=== PATIENT | female | born 1985 | race Caucasian/White ===

== ENCOUNTER 2018-05-03 08:45 | Outpatient (CLI) | payer BC | END 2018-05-03 20:29 | disposition home or self-care (01) | LOC: SMI 08:45 | PROVIDERS: ATTEND Orthopaedic Surgery | DX: S93.621A Sprain of tarsometatarsal ligament of right foot, initial encounter (principal); X58.XXXA Exposure to other specified factors, initial encounter; Y93.89 Activity, other specified; Y92.89 Other specified places as the place of occurrence of the external cause; Y99.8 Other external cause status | CPT/HCPCS: 73721 ==

== ENCOUNTER 2022-11-04 13:41 | Outpatient (CLI) | payer OTHER | END 2022-11-04 19:16 | disposition home or self-care (01) | LOC: SRD 13:41 | PROVIDERS: ATTEND Specialist | DX: N92.6 Irregular menstruation, unspecified (principal) | CPT/HCPCS: 74740; 58340; Q9967; C1751; 45385 ==